=== PATIENT | male | born 1990 | race Caucasian/White ===

== ENCOUNTER 2023-04-01 03:08 | Emergency (ER) | payer OTHER, MEDICAID, SELFPAY ==
[2023-04-01] VITALS (23 sets, daily range): BP systolic 96–160; BP diastolic 53–90; PULSE 83–108; RESP 11–59; TEMP 36.7; O2SAT 89–100; BMI 29.8
--- NOTE | 2023-04-01 03:15 | ED_ITS ---
HPI - General Adult <Calvin Newman DO - Last Filed: 04/01/23 17:57> General Chief complaint: Toxicology Problem Stated complaint: poly overdose Time Seen by Provider: 04/01/23 03:12 Source: EMS Mode of arrival: EMS Limitations: altered mental status History of Present Illness HPI narrative: Patient is a 32-year-old male. Paramedics were called secondary to a overdose. Per report the patient has taken fentanyl and methamphetamine. Per report there was a several minute. Of apnea. There was bystander CPR however paramedics state that the patient has had a pulse during their entire interactions. Patient did receive both intranasal on IV Narcan. This did resolve the apnea issues and did make the patient more alert. Has no signs of trauma. Upon arrival here in the emergency department the patient has no specific complaints but is certainly very somnolent. Did vomit 1 time during my evaluation. Would not specifically state what drugs that he did take. He did say that he knew that he was in the hospital. Related Data Allergies Allergy/AdvReac Type Severity Reaction Status Date / Time No Known Drug Allergies Allergy Verified 04/01/23 07:45 Review of Systems <Calvin Newman DO - Last Filed: 04/01/23 17:57> Review of Systems ROS Unobtainable: Unobtainable due to mental condition Exam <Calvin Newman DO - Last Filed: 04/01/23 17:57> Initial Vital Signs Initial Vital Signs: Vital Signs Temperature 98.1 F 04/01/23 03:07 Pulse Rate 108 H 04/01/23 03:07 Respiratory Rate 24 04/01/23 03:07 Blood Pressure 135/90 04/01/23 03:07 Pulse Oximetry 92 04/01/23 03:07 Oxygen Delivery Method Room Air 04/01/23 03:07 Const General: disheveled HENMT Head: normal to inspection and normocephalic Resp Effort & Inspection: normal respiratory effort Auscultation: clear to auscultation bilaterally Cardio Rate: regular rate Rhythm: regular rhythm GI Inspection: normal to inspection and non-distended Skin General: no rashes or lesions noted Neuro General: moves all extremities Extrem General: capillary refill normal <Annette Abbott DO - Last Filed: 04/01/23 07:33> Initial Vital Signs Initial Vital Signs: Vital Signs Temperature 98.1 F 04/01/23 03:07 Pulse Rate 108 H 04/01/23 03:07 Respiratory Rate 24 04/01/23 03:07 Blood Pressure 135/90 04/01/23 03:07 Pulse Oximetry 92 04/01/23 03:07 Oxygen Delivery Method Room Air 04/01/23 03:07 Course <Calvin OchoaDO cha - Last Filed: 04/01/23 17:57> Orders Ordered: Discontinued Medications Sodium Chloride (Normal Saline 0.9%) 1,000 mls @ 1,000 mls/hr IV BOLUS ONE Stop: 04/01/23 04:11 Last Infusion: 04/01/23 05:26 Dose: Infused Documented By: Admin: 04/01/23 03:20 Dose: 1,000 mls/hr Documented By: JOHAN Naloxone HCl (Naloxone 4 Mg Nasal [place]) 4 mg MISC SEEINSTR ONE Stop: 04/01/23 07:33 Last Admin: 04/01/23 07:45 Dose: 4 mg Documented By: HARSHAD Ondansetron HCl (Ondansetron 4 Mg/2 Ml Inj) 4 mg IV NOW ONE Stop: 04/01/23 03:13 Last Admin: 04/01/23 03:20 Dose: 4 mg Documented By: JOHAN Vital Signs Vital signs: Vital Signs - 8 hr 04/01/23 03:07 04/01/23 03:14 04/01/23 03:16 Temperature 98.1 F Pulse Rate 108 H 94 H 104 H Respiratory Rate 24 31 H Blood Pressure 135/90 Pulse Oximetry 92 99 Oxygen Delivery Method Room Air 04/01/23 03:16 04/01/23 03:19 04/01/23 03:19 Temperature Pulse Rate 101 H Respiratory Rate 33 H Blood Pressure 135/90 160/84 H Pulse Oximetry 100 Oxygen Delivery Method 04/01/23 03:30 04/01/23 03:30 04/01/23 03:46 Temperature Pulse Rate 90 90 Respiratory Rate 59 H 39 H Blood Pressure 147/71 H Pulse Oximetry 95 94 Oxygen Delivery Method 04/01/23 03:46 04/01/23 04:00 04/01/23 04:00 Temperature Pulse Rate 95 H Respiratory Rate 29 H Blood Pressure 122/78 120/71 Pulse Oximetry 94 Oxygen Delivery Method 04/01/23 04:15 04/01/23 04:15 04/01/23 04:30 Temperature Pulse Rate 93 H 96 H Respiratory Rate 15 15 Blood Pressure 111/69 Pulse Oximetry 95 93 Oxygen Delivery Method 04/01/23 04:30 04/01/23 04:45 04/01/23 04:45 Temperature Pulse Rate 94 H Respiratory Rate 15 Blood Pressure 96/54 L 104/55 L Pulse Oximetry 92 Oxygen Delivery Method 04/01/23 05:00 04/01/23 05:00 04/01/23 05:15 Temperature Pulse Rate 96 H 97 H Respiratory Rate 15 22 Blood Pressure 107/56 L Pulse Oximetry 91 92 Oxygen Delivery Method Room Air 04/01/23 05:15 04/01/23 05:30 04/01/23 05:30 Temperature Pulse Rate 92 H Respiratory Rate 20 Blood Pressure 109/55 L 103/59 L Pulse Oximetry 93 Oxygen Delivery Method 04/01/23 05:45 04/01/23 05:45 04/01/23 06:00 Temperature Pulse Rate 95 H 94 H Respiratory Rate 18 16 Blood Pressure 103/57 L Pulse Oximetry 93 91 Oxygen Delivery Method 04/01/23 06:00 04/01/23 06:15 04/01/23 06:15 Temperature Pulse Rate 93 H Respiratory Rate 18 Blood Pressure 100/56 L 101/53 L Pulse Oximetry 91 Oxygen Delivery Method 04/01/23 06:30 04/01/23 06:30 04/01/23 06:45 Temperature Pulse Rate 83 92 H Respiratory Rate 15 13 Blood Pressure 115/60 Pulse Oximetry 94 90 L Oxygen Delivery Method 04/01/23 06:45 04/01/23 07:00 04/01/23 07:00 Temperature Pulse Rate 89 Respiratory Rate 14 Blood Pressure 104/59 L 105/60 Pulse Oximetry 90 L Oxygen Delivery Method Room Air <Annette Abbott, - Last Filed: 04/01/23 07:33> Orders Ordered: Discontinued Medications Sodium Chloride (Normal Saline 0.9%) 1,000 mls @ 1,000 mls/hr IV BOLUS ONE Stop: 04/01/23 04:11 Last Infusion: 04/01/23 05:26 Dose: Infused Documented By: Admin: 04/01/23 03:20 Dose: 1,000 mls/hr Documented By: JOHAN Naloxone HCl (Naloxone 4 Mg Nasal [place]) 4 mg MISC SEEINSTR ONE Stop: 04/01/23 07:33 Last Admin: 04/01/23 07:45 Dose: 4 mg Documented By: HARSHAD Ondansetron HCl (Ondansetron 4 Mg/2 Ml Inj) 4 mg IV NOW ONE Stop: 04/01/23 03:13 Last Admin: 04/01/23 03:20 Dose: 4 mg Documented By: JOHAN Vital Signs Vital signs: Vital Signs - 8 hr 04/01/23 03:07 04/01/23 03:14 04/01/23 03:16 Temperature 98.1 F Pulse Rate 108 H 94 H 104 H Respiratory Rate 24 31 H Blood Pressure 135/90 Pulse Oximetry 92 99 Oxygen Delivery Method Room Air 04/01/23 03:16 04/01/23 03:19 04/01/23 03:19 Temperature Pulse Rate 101 H Respiratory Rate 33 H Blood Pressure 135/90 160/84 H Pulse Oximetry 100 Oxygen Delivery Method 04/01/23 03:30 04/01/23 03:30 04/01/23 03:46 Temperature Pulse Rate 90 90 Respiratory Rate 59 H 39 H Blood Pressure 147/71 H Pulse Oximetry 95 94 Oxygen Delivery Method 04/01/23 03:46 04/01/23 04:00 04/01/23 04:00 Temperature Pulse Rate 95 H Respiratory Rate 29 H Blood Pressure 122/78 120/71 Pulse Oximetry 94 Oxygen Delivery Method 04/01/23 04:15 04/01/23 04:15 04/01/23 04:30 Temperature Pulse Rate 93 H 96 H Respiratory Rate 15 15 Blood Pressure 111/69 Pulse Oximetry 95 93 Oxygen Delivery Method 04/01/23 04:30 04/01/23 04:45 04/01/23 04:45 Temperature Pulse Rate 94 H Respiratory Rate 15 Blood Pressure 96/54 L 104/55 L Pulse Oximetry 92 Oxygen Delivery Method 04/01/23 05:00 04/01/23 05:00 04/01/23 05:15 Temperature Pulse Rate 96 H 97 H Respiratory Rate 15 22 Blood Pressure 107/56 L Pulse Oximetry 91 92 Oxygen Delivery Method Room Air 04/01/23 05:15 04/01/23 05:30 04/01/23 05:30 Temperature Pulse Rate 92 H Respiratory Rate 20 Blood Pressure 109/55 L 103/59 L Pulse Oximetry 93 Oxygen Delivery Method 04/01/23 05:45 04/01/23 05:45 04/01/23 06:00 Temperature Pulse Rate 95 H 94 H Respiratory Rate 18 16 Blood Pressure 103/57 L Pulse Oximetry 93 91 Oxygen Delivery Method 04/01/23 06:00 04/01/23 06:15 04/01/23 06:15 Temperature Pulse Rate 93 H Respiratory Rate 18 Blood Pressure 100/56 L 101/53 L Pulse Oximetry 91 Oxygen Delivery Method 04/01/23 06:30 04/01/23 06:30 04/01/23 06:45 Temperature Pulse Rate 83 92 H Respiratory Rate 15 13 Blood Pressure 115/60 Pulse Oximetry 94 90 L Oxygen Delivery Method 04/01/23 06:45 04/01/23 07:00 04/01/23 07:00 Temperature Pulse Rate 89 Respiratory Rate 14 Blood Pressure 104/59 L 105/60 Pulse Oximetry 90 L Oxygen Delivery Method Room Air Medical Decision Making <Calvin Newman, DO - Last Filed: 04/01/23 17:57> [facility] Narrative Medical decision making narrative: There is no signs of trauma. The patient did vomit 1 time here in the ER. He has been very somnolent but is maintaining his airway. No hypoxia episodes. Who will observe until the patient becomes clinically sober and re-evaluate and will disposition afterwards. Care turned over to day provider to follow-up and disposition. <Annette Abbott, DO - Last Filed: 04/01/23 07:33> [facility] Narrative Medical decision making narrative: There is no signs of trauma. The patient did vomit 1 time here in the ER. He has been very somnolent but is maintaining his airway. No hypoxia episodes. Who will observe until the patient becomes clinically sober and re-evaluate and will disposition afterwards. Care turned over to day provider to follow-up and disposition. Dr. Abbott-patient signed out to me by Dr. Newman seen evaluated patient myself. Awake alert oriented. Admits to taking fentanyl reports that he is previously been sober was on Suboxone for long time he recently relapsed just a couple days ago. He is never overdosed before. Not trying to harm self no suicidal homicidal ideations just trying to get high. He is got more Suboxone that he is going to get back on. He is given a prepack of Narcan Discharge Plan Departure Patient Disposition: Home Clinical Impression: Overdose opiate Qualifiers: Encounter type: initial encounter Injury intent: accidental or unintentional Qualified Code(s): T40.601A - Poisoning by unspecified narcotics, accidental (unintentional), initial encounter Instructions: Naloxone for Opiate Overdose - WADOH Activity Restrictions/Additional Instructions: *You have been diagnosed with opiate overdose *What to do: Strongly encourage you to get back on Suboxone and/or go to detox. *Continue to take medications as directed Narcan as needed *Follow up with your primary care provider in 2-3 days or call [phone] *Return to ER if you should have any new, worsening or concerning symptoms Stand Alone Forms: Patient Portal/API
[2023-04-01] MEDS: ONDANSETRON 4 MG/2 ML INJ IV (03:20)
[2023-04-01] MEDS: SODIUM CHLORIDE 0.9% 1,000 ML 1000 ML IV (03:20)
--- NOTE | 2023-04-01 07:30 | PC.NURSE ---
Pt awakes to verbal stimuli, he is drowsy but responsive and oriented. He gave me his friend Susan's number to call for a ride home . I called and Susan was just outside the hospital. She is on her way in. Pt denies nausea and is eating a cheese stick and drinking ice water.
[2023-04-01] MEDS: NALOXONE 4 MG NASAL SPRAY MISC (07:45)
--- NOTE | 2023-04-01 07:55 | PC.NURSE ---
Pt's friend Susan at bedside during discharge paperwork.
== END 2023-04-01 07:56 | disposition home or self-care (01) ==
PROVIDERS: Emergency Provider Emergency Medicine
DX: T40.601A Poisoning by unspecified narcotics, accidental (unintentional), initial encounter (principal)
CPT/HCPCS: 96361; 96374; 99284; A9270; J2405